=== PATIENT | male | born 1945 | race Caucasian/White ===

== ENCOUNTER 2017-12-09 11:26 | Emergency (ER) | payer MEDICARE, OTHER ==
[~2017-12-09 11:26] MED LIST: AVOD0.5C PO; CETI5TAB2 PO; NEXI20CA PO
[2017-12-09 11:31] VITALS: BP 165/74; PULSE 111; RESP 18; TEMP 99.5; O2SAT 95
--- NOTE | 2017-12-09 12:00 | PD ---
HPI Chief Complaint: Complaint Time Seen by Provider: 11:50 Travel History International Travel<30 days: No Contact w/Intl Traveler<30days: No Traveled to known affect area: No History of Present Illness HPI 72-year-old male complains of low back pain and urinary frequency. Patient states that he started having low back pain after heavy lifting about 4 weeks ago. Patient states that low back pain aching pain localized low back area. Patient denies any pain radiation. Patient denies any weakness or numbness of extremity. Patient states that he started having intermittent chills since last night. Patient states that he started having urinary frequency since last night. Patient denies any dysuria. Patient complained of lower extremity aching pain since last night. Patient denies any headache. Patient denies any chest pain or shortness of breath. Patient denies abdominal pain. Patient denies any nausea vomiting diarrhea. Patient has history of hyperlipidemia. PFSH Past Medical History GERD: Yes Past Surgical History Tonsillectomy: Yes Social History Alcohol Use: No Tobacco Use: No Allergies-Medications (Allergen,Severity, Reaction): Coded Allergies: penicillin G (Unverified Allergy, Mild, RASH, 03/04/17) Reported Meds & Prescriptions Reported Meds & Active Scripts Active Reported Singulair (Montelukast Sodium) 10 Mg Tab 10 Mg PO HS Vitamin D3 (Cholecalciferol) 5,000 Unit Cap 5,000 Units PO Nexium 24 HR (Esomeprazole DR) 20 Mg Capdr 20 Mg PO DAILY Simvastatin 20 Mg Tab 20 Mg PO DAILY Review of Systems General / Constitutional: Positive: Chills, No: Fever Eyes: No: Visual changes HENT: No: Headaches Cardiovascular: No: Chest Pain or Discomfort Respiratory: No: Shortness of Breath Gastrointestinal: No: Abdominal Pain Genitourinary: Positive: Frequency, No: Dysuria Musculoskeletal: No: Pain Skin: No Rash Neurologic: No: Weakness Psychiatric: No: Depression Endocrine: No: Polydipsia Hematologic/Lymphatic: No: Easy Bruising Physical Exam Narrative GENERAL: Well-nourished, well-developed patient. SKIN: Focused skin assessment warm/dry. HEAD: Normocephalic. EYES: No scleral icterus. No injection or drainage. NECK: Supple, trachea midline. No JVD or lymphadenopathy. CARDIOVASCULAR: Regular rate and rhythm without murmurs, gallops, or rubs. RESPIRATORY: Breath sounds equal bilaterally. No accessory muscle use. GASTROINTESTINAL: Abdomen soft, non-tender, nondistended. MUSCULOSKELETAL: No cyanosis, or edema. BACK: Patient has mild tenderness in palpation lumbar area, without obvious deformity. No CVA tenderness. Negative straight leg raising. Neurologic exam normal. Data Data Last Documented VS Vital Signs Date Time Temp Pulse Resp B/P (MAP) Pulse Ox O2 Delivery O2 Flow Rate FiO2 12/09/17 13:52 100 Room Air 12/09/17 11:31 99.5 111 18 165/74 (104) Orders Orders Electrocardiogram (12/09/17 12:00) Complete Blood Count With Diff (12/09/17 12:00) Comprehensive Metabolic Panel (12/09/17 12:00) Prothrombin Time / Inr (Pt) (12/09/17 12:00) Act Partial Throm Time (Ptt) (12/09/17 12:00) Urinalysis - C+S If Indicated (12/09/17 12:00) Iv Access Insert/Monitor (12/09/17 12:00) Ecg Monitoring (12/09/17 12:00) Oximetry (12/09/17 12:00) Ct Lumb Spine W/O Contrast (12/09/17 12:00) Labs Laboratory Tests Test 12/09/17 12:55 12/09/17 14:00 White Blood Count 14.3 TH/MM3 Red Blood Count 4.92 MIL/MM3 Hemoglobin 14.0 GM/DL Hematocrit 42.9 % Mean Corpuscular Volume 87.2 FL Mean Corpuscular Hemoglobin 28.5 PG Mean Corpuscular Hemoglobin Concent 32.7 % Red Cell Distribution Width 14.2 % Platelet Count 295 TH/MM3 Mean Platelet Volume 7.2 FL Neutrophils (%) (Auto) 89.2 % Lymphocytes (%) (Auto) 2.8 % Monocytes (%) (Auto) 7.6 % Eosinophils (%) (Auto) 0.1 % Basophils (%) (Auto) 0.3 % Neutrophils # (Auto) 12.7 TH/MM3 Lymphocytes # (Auto) 0.4 TH/MM3 Monocytes # (Auto) 1.1 TH/MM3 Eosinophils # (Auto) 0.0 TH/MM3 Basophils # (Auto) 0.0 TH/MM3 CBC Comment DIFF FINAL Differential Comment Prothrombin Time 10.2 SEC Prothromb Time International Ratio 1.0 RATIO Activated Partial Thromboplast Time 24.3 SEC Blood Urea Nitrogen 15 MG/DL Creatinine 1.05 MG/DL Random Glucose 100 MG/DL Total Protein 7.4 GM/DL Albumin 3.8 GM/DL Calcium Level 9.6 MG/DL Alkaline Phosphatase 64 U/L Aspartate Amino Transf (AST/SGOT) 22 U/L Alanine Aminotransferase (ALT/SGPT) 29 U/L Total Bilirubin 0.9 MG/DL Sodium Level 138 MEQ/L Potassium Level 4.0 MEQ/L Chloride Level 104 MEQ/L Carbon Dioxide Level 25.3 MEQ/L Anion Gap 9 MEQ/L Estimat Glomerular Filtration Rate 69 ML/MIN Urine Color YELLOW Urine Turbidity CLEAR Urine pH 7.5 Urine Specific [place] 1.014 Urine Protein NEG mg/dL Urine Glucose (UA) NEG mg/dL Urine Ketones NEG mg/dL Urine Occult Blood SMALL Urine Nitrite NEG Urine Bilirubin NEG Urine Urobilinogen LESS THAN 2.0 MG/DL Urine Leukocyte Esterase NEG Urine RBC 2 /hpf Urine WBC LESS THAN 1 /hpf Urine Squamous Epithelial Cells <1 /hpf Urine Mucus FEW /lpf Microscopic Urinalysis Comment CULT NOT INDICATED MDM Medical Decision Making Medical Screen Exam Complete: Yes Emergency Medical Condition: Yes Interpretation(s) Last Impressions Lumbar Spine CT 12/09/17 1200 Signed Impressions: CONCLUSION: [address] scan lumbar spine shows mild diffuse bulging disc and arthritis changes. CBC WBC 14.3. 89 neutrophil. CMP within normal limits. UA is negative. Differential Diagnosis Differential diagnosis including lumbar strain, UTI, pyelonephritis, nephrolithiasis, abdominal aortic aneurysm. Narrative Course 72-year-old male with low back pain and urinary frequency and chills. Diagnosis Primary Impression: Prostatitis Qualified Codes: N41.9 - Inflammatory disease of prostate, unspecified Patient Instructions: General Instructions Additional Instructions: Levaquin as directed. Tylenol ibuprofen for aching pain. Follow-up with personal physician. Return if not clinically better in 48 hours. Med/Other Pt SpecificInfo: Prescription(s) given Scripts Levofloxacin (Levaquin) 750 Mg Tablet 750 MG PO DAILY for Infection, #10 TAB 0 Refills Prov: Estuardo Maradiaga MD 12/09/17 Disposition: 01 DISCHARGE HOME Condition: Stable Estuardo Maradiaga MD December 09, 2017 12:00
[2017-12-09 13:14] LABS: AUTOMATED NEUTROPHIL # 12.7 TH/MM3 (1.8-7.7); BASOPHIL % 0.3 % (0.0-2.0); EOSINOPHIL % 0.1 % (0.0-4.0); HEMATOCRIT 42.9 % (39.0-51.0); LYMPH % 2.8 % (9.0-44.0); LYMPHOCYTE # 0.4 TH/MM3 (1.0-4.8); MEAN CELL VOLUME 87.2 FL (80.0-100.0); MEAN CORPUSCULAR HEMOGLOBIN 28.5 PG (27.0-34.0); MEAN CORPUSCULAR HGB CONC 32.7 % (32.0-36.0); MEAN PLATELET VOLUME 7.2 FL (7.0-11.0); MONO % 7.6 % (0.0-8.0); MONOCYTE # 1.1 TH/MM3 (0-0.9); NEUT % 89.2 % (16.0-70.0); PLATELET COUNT 295 TH/MM3 (150-450); RED BLOOD COUNT 4.92 MIL/MM3 (4.50-5.90); RED CELL DISTRIBUTION WIDTH 14.2 % (11.6-17.2); WHITE BLOOD COUNT 14.3 TH/MM3 (4.0-11.0)
[2017-12-09 13:23] LABS: PROTHROMBIN TIME - PATIENT 10.2 SEC (9.8-11.6)
[2017-12-09 13:36] LABS: ALBUMIN 3.8 GM/DL (3.4-5.0); ALT (GPT) 29 U/L (12-78); AST (GOT) 22 U/L (15-37); BICARBONATE 25.3 MEQ/L (21.0-32.0); BLOOD UREA NITROGEN 15 MG/DL (7-18); CALCIUM 9.6 MG/DL (8.5-10.1); CHLORIDE 104 MEQ/L (98-107); CREATININE 1.05 MG/DL (0.60-1.30); GLOMERULAR FILTRATION RATE 69 ML/MIN (>89); GLUCOSE,RANDOM 100 MG/DL (74-106); SODIUM (NA) 138 MEQ/L (136-145)
[2017-12-09 13:38] LABS: ALKALINE PHOSPHATASE 64 U/L (45-117); TOTAL BILIRUBIN ADULT 0.9 MG/DL (0.2-1.0); TOTAL PROTEIN 7.4 GM/DL (6.4-8.2)
[2017-12-09 13:52] VITALS: O2SAT 100
[2017-12-09] MEDS ORDERED: SIMV20TA PO (14:00)
[2017-12-09] MEDS ORDERED: ESOM1CAP6 PO (14:01)
[2017-12-09] MEDS ORDERED: MONT10TA2 PO (14:01)
[2017-12-09] MEDS ORDERED: CHOL5000 PO (14:01)
--- NOTE | 2017-12-09 14:14 | RADRPT ---
EXAM DATE: 12/09/2017 2:08 PM EDT AGE/SEX: 72 years / Male INDICATIONS: Lower back pain for one month. CLINICAL DATA: This is the patient's initial encounter. Patient reports that signs and symptoms have been present for 1 month and indicates a pain score of 5/10. MEDICAL/SURGICAL HISTORY: Gastroesophageal reflux disease. Tonsillectomy. RADIATION DOSE: 35.86 CTDI (mGy) COMPARISON: No prior [facility] exams available for comparison. TECHNIQUE: Contiguous axial images were acquired with a multirow detector CT scanner without contras t. Multiplanar reconstructions in the sagittal and coronal plane were also performed. Using automate d exposure control and adjustment of the mA and/or kV according to patient size, radiation dose was k ept as low as reasonably achievable to obtain optimal diagnostic quality images. FINDINGS: Vertebrae: Normal vertebral body height. No compression fracture injuries are demonstrated. Mild bon y degenerative changes are present. Alignment: Normal. No subluxation. T12-L1: The thecal sac has a normal diameter. No evidence of disc bulge or protrusion. The neural foramina are patent bilaterally. L1-L2: The thecal sac has a normal diameter. No evidence of disc bulge or protrusion. The neural f oramina are patent bilaterally. L2-L3: The thecal sac has a normal diameter. No evidence of disc bulge or protrusion. The neural f oramina are patent bilaterally. L3-L4: The thecal sac has a normal diameter. No evidence of disc bulge or protrusion. The neural f oramina are patent bilaterally. L4-L5: Mild diffuse broad-based bulging. Mild narrowing of the right neural foramina. The left neura l foramina is patent. Mild facet arthritis. L5-S1: Mild right lateral bulging with some narrowing of the right neural foramina. The left neural foramina is patent. There is bilateral facet arthritis. CONCLUSION: 1. Mild diffuse broad-based bulging at L4-5. 2. Mild right lateral bulging L5-S1. 3. Mild facet arthritis at L4-5 and L5-S1. Electronically signed by: Reginald Saenz MD 12/09/2017 2:12 PM EDT
[2017-12-09 14:33] LABS: BILIRUBIN, URINE NEG (NEG); BLOOD, URINE SMALL (NEG); GLUCOSE,URINE NEG (NEG); KETONE, URINE NEG (NEG); MUCUS URINE FEW /lpf (OCC); NITRITE,URINE NEG (NEG); PH, URINE 7.5 (5.0-8.5); SQUAMOUS EPITHELIAL CELL URINE <1 /hpf (0-5); URINE COLOR YELLOW (YELLW/STRAW); URINE LEUKOCYTE ESTERASE NEG (NEG)
[2017-12-09] MEDS ORDERED: LEVA750T9 PO (14:50)
[2017-12-09] MEDS ORDERED: LEVOFLOXACIN 750 MG TAB PO ONE (15:00)
--- NOTE | 2017-12-09 15:12 | RADRPT ---
EXAM DATE: 12/09/2017 3:07 PM EDT AGE/SEX: 72 years / Male INDICATIONS: Fever x 2 days. CLINICAL DATA: This is the patient's initial encounter. Patient reports that signs and symptoms have been present for 1 day and indicates a pain score of 0/10. MEDICAL/SURGICAL HISTORY: None. None. COMPARISON: No prior [facility] exams available for comparison. FINDINGS: A single AP view of the chest demonstrates the lungs to be symmetrically aerated without evidence of mass, infiltrate or effusion. The cardiomediastinal contours are unremarkable. Osseous structures a re intact. CONCLUSION: No acute pulmonary infiltrates. Electronically signed by: Reginald Saenz MD 12/09/2017 3:11 PM EDT
--- NOTE | 2017-12-11 08:30 | EKG ---
Date Performed: 12/09/2017 Time Performed: 12:51:05 PTAGE: 72 years EKG: Sinus rhythm POSSIBLE INFERIOR MYOCARDIAL INFARCTION BORDERLINE ECG NO PREVIOUS TRACING DOCTOR: Leni Ennis Interpretating Date/Time 12/11/2017 08:19:16
== END 2017-12-09 15:41 | disposition home or self-care (01) ==
LOC: NEPC 11:26
DX: N41.9 Inflammatory disease of prostate, unspecified (principal); M51.26 Other intervertebral disc displacement, lumbar region; K21.9 Gastro-esophageal reflux disease without esophagitis; E78.5 Hyperlipidemia, unspecified; R50.9 Fever, unspecified; Z79.899 Other long term (current) drug therapy
CPT/HCPCS: 71045; 72131; 80053; 81001; 85025; 85610; 85730; 93005